=== PATIENT | male | born 1935 | race Caucasian/White ===

== ENCOUNTER 2020-09-19 05:40 | Inpatient (IN) | payer MEDICARE ==
[~2020-09-19] VITALS: Ht 180.3 cm; Wt 83.5 kg
[2020-09-19] MEDS ORDERED: SODIUM CHLORIDE FLUSH 10ML SYR IVF ONE (06:00)
[2020-09-19] MEDS ORDERED: PLEASE ENTER HEIGHT AND WEIGHT MC SCH (06:00)
[2020-09-19] MEDS ORDERED: ONDANSETRON 2MG/ML, 2ML IVPush ONE (06:00)
[2020-09-19] MEDS ORDERED: PANTOPRAZOLE 40 MG IV IVPush ONE ×2 (06:00→13:30)
[2020-09-19] MEDS ORDERED: PLEASE ENTER ALLERGIES MC SCH (06:00)
[2020-09-19] MEDS ORDERED: MORPHINE SULFATE 4 MG/ML, 1ML IVPush PRN (06:00)
[2020-09-19] MEDS ORDERED: QUIN20TA17 PO (06:07)
[2020-09-19] MEDS ORDERED: PRAV80TA2 PO (06:07)
[2020-09-19] MEDS ORDERED: SPIR25TA5 PO (06:07)
[2020-09-19] MEDS ORDERED: ALLO300T PO (06:07)
--- NOTE | 2020-09-19 06:07 | NUR ---
PT BIB [facility] FROM [place]. STATES HE WENT TO [place] WITH HIS SON AND AFTERWARDS BEGAN THROWING UP, THOUGHT IT WAS HIS GERD BUT STATES HE DIDNT STOP AND USUSALLY DOES. PT VOMITTING BILE BY THE END THEN DEVELOPED SOME LIGHT CHEST PAIN. PT STATES THE CP HAS RESOLVED AND WAS GRADUAL ONSET. PT RESTING ON GURNEY, NAD, DENIES ADDITIONAL NEEDS AT THIS TIME. PT PLACED ON SPO2/BP/ECG MONITORING. WCTM RESIDENT MD AT BS FOR EVAL AND POC. 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
[2020-09-19] MEDS ORDERED: OMEP20TA62 PO (06:23)
[2020-09-19] MEDS ORDERED: SODIUM CHLORIDE 0.9% 1,000 ML IV ONE (06:30)
--- NOTE | 2020-09-19 06:37 | NUR ---
PT RESTING ON GURNEY, NAD, APPEARS COMFORTABLE, PROVIDED MOUTH SWABS FOR COMFORT, DENIES ADDITIONAL QUESTIONS OR NEEDS AT THIS TIME. PROVIDED WARM BLANETS FOR COMFORT, BED IN LOWEST, CALL LIGHT ON LAP, VSS. WCTM. WAITING FOR LAB RESULTS.
[2020-09-19 06:52] LABS: ALANINE AMINOTRANSFERASE 34 U/L (12-78); ALBUMIN 3.4 g/dL (3.4-5.0); ANION GAP 4 mmol/L (5-15); CALCIUM 9.9 mg/dL (8.5-10.1); CHLORIDE 108 mmol/L (98-107); CREATININE 1.29 mg/dL (0.7-1.3); TRIGLYCERIDES 51 mg/dL (50-200)
[2020-09-19 06:54] LABS: ALKALINE PHOSPHATASE 97 U/L (45-117); BILIRUBIN,TOTAL 1.2 mg/dL (0.2-1.0); TOTAL PROTEIN 7.8 g/dL (6.4-8.2)
--- NOTE | 2020-09-19 07:00 | NUR ---
bedside report to Yasmine SWANN, pt care transferred at this time.
[2020-09-19 07:09] LABS: BASOPHILS % (AUTO) 0 % (0-1); EOSINOPHILS % (AUTO) 0 % (1-7); LYMPHOCYTES % (AUTO) 5 % (22-44); MEAN CORPUSCULAR HEMOGLOBIN 34.2 pg (27.5-34.5); MEAN CORPUSCULAR HGB CONC 33.8 g/dL (33.2-36.2); MEAN PLATELET VOLUME 9.5 fL (7.4-10.4); MONOCYTES % (AUTO) 9 % (2-9); NEUTROPHILS % (AUTO) 86 % (42-75); PLATELET COUNT 150 x10^3/uL (130-400); RED BLOOD COUNT 3.51 x10^6/uL (4.38-5.82)
[2020-09-19 07:10] LABS: MD NO
--- NOTE | 2020-09-19 07:23 | NUR ---
[facility] CALLED @ [id number]
--- NOTE | 2020-09-19 07:58 | NUR ---
PT IS BUSY WITH HIS PHONE AND DOESN'T WANT TO STOP - US DELAY
--- NOTE | 2020-09-19 08:38 | NUR ---
ATTEMPT TO CALL REPORT, TOLD RN IN RM WILL CALL BACK, US COMPLETED AT BEDSIDE
--- NOTE | 2020-09-19 08:49 | NUR ---
REPORT NOW CALLED TO RECIVEING RN, AWAITING TRANSPORT
[2020-09-19 09:26] VITALS: BP 121/72
[2020-09-19] MEDS ORDERED: BACLOFEN 10 MG TABLET PO PRN (11:00)
[2020-09-19] MEDS ORDERED: LABETALOL 5MG/ML, 20ML IVPush PRN (11:00)
[2020-09-19] MEDS ORDERED: ONDANSETRON ODT 4 MG PO PRN (11:00)
[2020-09-19] MEDS ORDERED: ONDANSETRON 2MG/ML, 2ML IVPush PRN (11:00)
[2020-09-19] MEDS ORDERED: ENALAPRILAT 1.25 MG/ML, 2ML IVPush PRN (11:00)
[2020-09-19] MEDS ORDERED: MELATONIN 5 MG TABLET PO PRN (11:00)
[2020-09-19] MEDS ORDERED: GUAIFENESIN/DM 200-20MG, 10ML UDC PO PRN (11:00)
[2020-09-19] MEDS ORDERED: HYDROmorphone 2 MG/ML, 1ML IVPush PRN (11:00)
[2020-09-19] MEDS ORDERED: GUAIFENESIN/DM 100-10MG, 5ML UDC PO PRN (11:30)
[2020-09-19] MEDS ORDERED: SINCALIDE (KINEVAC) 5 MCG ONE (12:25)
[2020-09-19 13:09] VITALS: BP 144/80
[2020-09-19] MEDS: D5%-0.45NACL+KCL 20MEQ 1,000 ML IV SCH (13:40)
[2020-09-19] MEDS: PANTOPRAZOLE 40 MG IV IVPush SCH (14:30)
[2020-09-19 18:52] VITALS: BP 125/64
[2020-09-20] MEDS: D5%-0.45NACL+KCL 20MEQ 1,000 ML IV SCH ×3 (00:49→21:42)
[2020-09-20 00:57] VITALS: BP 101/63
[2020-09-20 06:03] LABS: BASOPHILS % (AUTO) 0 % (0-1); EOSINOPHILS % (AUTO) 1 % (1-7); LYMPHOCYTES % (AUTO) 22 % (22-44); MEAN CORPUSCULAR HEMOGLOBIN 35.6 pg (27.5-34.5); MEAN CORPUSCULAR HGB CONC 35.2 g/dL (33.2-36.2); MEAN PLATELET VOLUME 9.5 fL (7.4-10.4); MONOCYTES % (AUTO) 11 % (2-9); NEUTROPHILS % (AUTO) 67 % (42-75); PLATELET COUNT 124 x10^3/uL (130-400); RED BLOOD COUNT 3.11 x10^6/uL (4.38-5.82); RED CELL DISTRIBUTION WIDTH 14.5 % (9.4-14.8)
[2020-09-20 06:08] LABS: ALBUMIN 2.8 g/dL (3.4-5.0); CALCIUM 9.6 mg/dL (8.5-10.1); CHLORIDE 109 mmol/L (98-107)
[2020-09-20 06:17] LABS: ALANINE AMINOTRANSFERASE 23 U/L (12-78); ALKALINE PHOSPHATASE 75 U/L (45-117); ANION GAP 3 mmol/L (5-15); BILIRUBIN,TOTAL 0.7 mg/dL (0.2-1.0); CREATININE 1.12 mg/dL (0.7-1.3); TOTAL PROTEIN 7.2 g/dL (6.4-8.2)
[2020-09-20 06:20] LABS: MD NO
[2020-09-20 07:49] VITALS: BP 124/69
[2020-09-20] MEDS: PANTOPRAZOLE 40 MG IV IVPush SCH (11:23)
[2020-09-20 13:40] VITALS: BP 108/61
[2020-09-20 20:00] VITALS: BP 114/53
[2020-09-21 03:07] VITALS: BP 101/59
[2020-09-21 07:57] VITALS: BP 129/69
[2020-09-21] MEDS: PANTOPRAZOLE 40 MG IV IVPush SCH (09:15)
[2020-09-21] MEDS: D5%-0.45NACL+KCL 20MEQ 1,000 ML IV SCH (09:15)
[2020-09-21 13:18] VITALS: BP 150/76
[2020-09-21 13:25] VITALS: BP 142/70
== END 2020-09-21 13:50 | disposition home or self-care (01) | DRG 440 ==
LOC: ED 07:33 → EDIP 07:58 → 4NE 09:00 → DCLOUNGE 09-21 13:35
PROVIDERS: ADMIT Family Medicine; ATTEND Family Medicine
DX: K85.90 Acute pancreatitis without necrosis or infection, unspecified (principal); D53.9 Nutritional anemia, unspecified; E78.5 Hyperlipidemia, unspecified; N20.0 Calculus of kidney; I10 Essential (primary) hypertension; I25.10 Atherosclerotic heart disease of native coronary artery without angina pectoris; R73.9 Hyperglycemia, unspecified; K21.9 Gastro-esophageal reflux disease without esophagitis; F17.210 Nicotine dependence, cigarettes, uncomplicated; Z87.442 Personal history of urinary calculi; Z95.5 Presence of coronary angioplasty implant and graft; Z88.2 Allergy status to sulfonamides
CPT/HCPCS: 36415; 76700; 78227; 80053; 83690; 83735; 84478; 85025; 87040; 93005; G0378; A9537; C9113; C9898; J2805; J3480

== ENCOUNTER 2020-11-25 01:42 | Inpatient (IN) | payer MEDICARE ==
[~2020-11-25] VITALS: Ht 182.9 cm; Wt 89.0 kg
[~2020-11-25 01:42] MED LIST: ALLO300T PO; OMEP20TA62 PO; PRAV80TA2 PO; QUIN20TA17 PO; SPIR25TA5 PO
[2020-11-25] MEDS ORDERED: SODIUM CHLORIDE FLUSH 10ML SYR IVF ONE (02:00)
--- NOTE | 2020-11-25 02:01 | NUR ---
pt bib ems from [facility]. pt has cholecytitis, and they do not have gi availible. pt recieved rocephin, 1 liter ns, and iv reglan. pt denies pain or n/v or pain at this time. pt on all monitors, ekg done, iv patent, labs ordered.
[2020-11-25 02:18] LABS: BASOPHILS % (AUTO) 0 % (0-1); EOSINOPHILS % (AUTO) 0 % (1-7); LYMPHOCYTES % (AUTO) 9 % (22-44); MEAN CORPUSCULAR HEMOGLOBIN 34.7 pg (27.5-34.5); MEAN CORPUSCULAR HGB CONC 33.9 g/dL (33.2-36.2); MEAN PLATELET VOLUME 10.2 fL (7.4-10.4); MONOCYTES % (AUTO) 10 % (2-9); NEUTROPHILS % (AUTO) 81 % (42-75); PLATELET COUNT 94 x10^3/uL (130-400); RED BLOOD COUNT 3.33 x10^6/uL (4.38-5.82); RED CELL DISTRIBUTION WIDTH 14.4 % (9.4-14.8)
[2020-11-25 02:24] LABS: MD NO
[2020-11-25 02:27] LABS: ANION GAP 8 mmol/L (5-15); CALCIUM 9.6 mg/dL (8.5-10.1); CHLORIDE 108 mmol/L (98-107)
[2020-11-25 02:30] LABS: ALANINE AMINOTRANSFERASE 107 U/L (12-78); ALKALINE PHOSPHATASE 198 U/L (45-117); BILIRUBIN,TOTAL 4.5 mg/dL (0.2-1.0); CREATININE 1.46 mg/dL (0.7-1.3); TOTAL PROTEIN 7.6 g/dL (6.4-8.2)
[2020-11-25] MEDS ORDERED: SPIR25TA5 PO (02:39)
[2020-11-25] MEDS: SODIUM CHLORIDE 0.9% 1,000 ML IV SCH ×2 (03:30→17:26)
[2020-11-25] MEDS ORDERED: ONDANSETRON ODT 4 MG PO PRN (03:30)
[2020-11-25] MEDS ORDERED: ONDANSETRON 2MG/ML, 2ML IVPush PRN (03:30)
[2020-11-25] MEDS ORDERED: OXYcodone IR 5MG TABLET PO PRN (03:30)
[2020-11-25] MEDS ORDERED: PROMETHAZINE 25 MG/ML, 1ML IM PRN (03:30)
[2020-11-25] MEDS ORDERED: DOCUSATE 100 MG CAPSULE PO PRN (03:30)
[2020-11-25] MEDS ORDERED: hydrALAzine 20 MG/ML, 1ML IVPush PRN (03:30)
[2020-11-25] MEDS ORDERED: HEPARIN 5,000 UNITS/ML, 1ML SQ SCH (03:30)
[2020-11-25 03:43] LABS: INTERNATIONAL NORMALIZED RATIO 1.17 (0.93-1.1); PROTHROMBIN TIME 12.5 Seconds (9.6-11.5)
[2020-11-25 03:47] LABS: FREE T4 (FREE THYROXINE) 1.27 ng/dL (0.76-1.46)
[2020-11-25 04:01] VITALS: BP 141/74
[2020-11-25] MEDS ORDERED: ALLOPURINOL 300 MG TABLET PO SCH (09:00)
[2020-11-25] MEDS ORDERED: SPIRONOLACTONE 25 MG TABLET PO SCH (09:00)
[2020-11-25] MEDS ORDERED: QUINAPRIL 20MG TABLET PO SCH (09:00)
[2020-11-25 09:22] VITALS: BP 120/70
[2020-11-25 14:59] VITALS: BP 135/72
[2020-11-25] MEDS: CEFTRIAXONE PMX 2GM/50ML 50 ML IVPB SCH (17:21)
[2020-11-25 17:28] VITALS: BP 162/74
[2020-11-25] MEDS: morphine SULFATE 10 MG/ML, 1ML IVPush PRN (18:11)
[2020-11-25] MEDS: METRONIDAZOLE PMX 500MG/100ML 100 ML IV SCH (18:14)
[2020-11-25 19:04] VITALS: BP 160/76
[2020-11-26 01:37] VITALS: BP 154/83
[2020-11-26] MEDS: METRONIDAZOLE PMX 500MG/100ML 100 ML IV SCH ×3 (02:52→18:25)
[2020-11-26 05:40] LABS: BASOPHILS % (AUTO) 0 % (0-1); EOSINOPHILS % (AUTO) 0 % (1-7); LYMPHOCYTES % (AUTO) 6 % (22-44); MEAN CORPUSCULAR HEMOGLOBIN 34.7 pg (27.5-34.5); MEAN CORPUSCULAR HGB CONC 34.1 g/dL (33.2-36.2); MEAN PLATELET VOLUME 10.1 fL (7.4-10.4); MONOCYTES % (AUTO) 11 % (2-9); NEUTROPHILS % (AUTO) 83 % (42-75); PLATELET COUNT 94 x10^3/uL (130-400); RED BLOOD COUNT 3.27 x10^6/uL (4.38-5.82); RED CELL DISTRIBUTION WIDTH 14.8 % (9.4-14.8)
[2020-11-26 05:48] LABS: ALANINE AMINOTRANSFERASE 76 U/L (12-78); ALBUMIN 2.8 g/dL (3.4-5.0); ANION GAP 8 mmol/L (5-15); CALCIUM 10.2 mg/dL (8.5-10.1); CHLORIDE 112 mmol/L (98-107); CHOLESTEROL, TOTAL 86 mg/dL (140-239); CREATININE 1.41 mg/dL (0.7-1.3)
[2020-11-26 05:50] LABS: TRIGLYCERIDES 90 mg/dL (50-200); VLDL CHOLESTEROL 18 mg/dL (0-25)
[2020-11-26 05:53] LABS: ALKALINE PHOSPHATASE 210 U/L (45-117); BILIRUBIN,TOTAL 6.4 mg/dL (0.2-1.0); CHOL/HDL RATIO 5.4; HDL CHOL % 19 % (26-37); HDL CHOLESTEROL (DIRECT) 16 mg/dL (40-60); LDL CHOLESTEROL,CALCULATED 52 mg/dL (54-169); LDL/HDL RATIO 3.3 (0.5-3.0); MD NO; TOTAL PROTEIN 7.1 g/dL (6.4-8.2)
[2020-11-26 06:25] VITALS: BP 151/80
[2020-11-26] MEDS: morphine SULFATE 10 MG/ML, 1ML IVPush PRN (10:52)
[2020-11-26 12:00] VITALS: BP 156/80
[2020-11-26] MEDS ORDERED: CHLORHEXIDINE 15 ML UDC ONE (13:24)
[2020-11-26] MEDS ORDERED: FENTANYL PF 100 MCG/2ML ONE (14:10)
[2020-11-26] MEDS ORDERED: DEXAMETHASONE 4 MG/ML, 5ML ONE (14:12)
[2020-11-26] MEDS ORDERED: PROPOFOL 10 MG/ML, 20ML ONE (14:12)
[2020-11-26] MEDS ORDERED: SUCCINYLCHOLINE 20 MG/ML, 10ML ONE (14:12)
[2020-11-26] MEDS ORDERED: ROCURONIUM 10 MG/ML,10ML ONE (14:26)
[2020-11-26] MEDS ORDERED: OMNIPAQUE 350 MG/ML, 50 ML BOTTLE ONE (15:00)
[2020-11-26] MEDS ORDERED: PROMETHAZINE 12.5 MG SUPP PR PRN (15:30)
[2020-11-26] MEDS ORDERED: MIDAZOLAM 1 MG/ML, 2ML IV PRN (15:30)
[2020-11-26] MEDS ORDERED: HYDROmorphone 1 MG/ML, 1ML INJ IVPush PRN (15:30)
[2020-11-26] MEDS ORDERED: PROMETHAZINE 25 MG/ML, 1ML IVPush PRN (15:30)
[2020-11-26] MEDS ORDERED: EPHEDRINE 50 MG/ML, 1ML IVPush PRN (15:30)
[2020-11-26] MEDS ORDERED: OXYcodone 5 MG/5 ML ORAL.SOL UDC PO PRN (15:30)
[2020-11-26] MEDS ORDERED: hydrALAzine 20 MG/ML, 1ML IV PRN (15:30)
[2020-11-26] MEDS ORDERED: FENTANYL PF 100 MCG/2ML IV PRN (15:30)
[2020-11-26] MEDS ORDERED: DIAZEPAM 5 MG/ML, 2ML IVPush PRN (15:30)
[2020-11-26] MEDS ORDERED: LABETALOL 5MG/ML, 20ML IV PRN (15:30)
[2020-11-26] MEDS ORDERED: ALBUTEROL SULFATE 2.5 MG/3 ML NPPB PRN (15:30)
[2020-11-26] MEDS ORDERED: MEPERIDINE/PF 25MG/0.5ML IVPush PRN (15:30)
[2020-11-26] MEDS ORDERED: DIPHENHYDRAMINE 50 MG/ML, 1ML IVPush PRN (15:30)
[2020-11-26] MEDS ORDERED: ONDANSETRON 2MG/ML, 2ML IVPush PRN (15:30)
[2020-11-26] MEDS ORDERED: SIMETHICONE DROPS 40 MG/0.6 ML BOTTLE ONE (15:45)
[2020-11-26] MEDS ORDERED: INDOMETHACIN 50 MG SUPP.RECT ONE (16:03)
[2020-11-26] MEDS ORDERED: INDOMETHACIN 50 MG SUPP.RECT PR ONE (16:30)
[2020-11-26] MEDS: SODIUM CHLORIDE 0.9% 1,000 ML IV SCH (17:32)
[2020-11-26] MEDS: CEFTRIAXONE PMX 2GM/50ML 50 ML IVPB SCH (17:34)
[2020-11-26 18:00] VITALS: BP 148/78
[2020-11-26 19:20] VITALS: BP 170/83
[2020-11-27 00:05] VITALS: BP 144/73
[2020-11-27] MEDS: SODIUM CHLORIDE 0.9% 1,000 ML IV SCH ×2 (01:30→10:03)
[2020-11-27] MEDS: METRONIDAZOLE PMX 500MG/100ML 100 ML IV SCH ×3 (02:15→18:09)
[2020-11-27 03:45] VITALS: BP 132/65
[2020-11-27 05:57] LABS: BASOPHILS % (AUTO) 0 % (0-1); EOSINOPHILS % (AUTO) 0 % (1-7); LYMPHOCYTES % (AUTO) 8 % (22-44); MEAN CORPUSCULAR HEMOGLOBIN 34.9 pg (27.5-34.5); MEAN CORPUSCULAR HGB CONC 34.1 g/dL (33.2-36.2); MEAN PLATELET VOLUME 10.9 fL (7.4-10.4); MONOCYTES % (AUTO) 3 % (2-9); NEUTROPHILS % (AUTO) 88 % (42-75); PLATELET COUNT 78 x10^3/uL (130-400); RED BLOOD COUNT 2.89 x10^6/uL (4.38-5.82); RED CELL DISTRIBUTION WIDTH 14.6 % (9.4-14.8)
[2020-11-27 06:11] LABS: CHLORIDE 113 mmol/L (98-107)
[2020-11-27 06:19] LABS: ALANINE AMINOTRANSFERASE 54 U/L (12-78); ALBUMIN 2.3 g/dL (3.4-5.0); ALKALINE PHOSPHATASE 190 U/L (45-117); ANION GAP 6 mmol/L (5-15); BILIRUBIN,TOTAL 3.4 mg/dL (0.2-1.0); CALCIUM 9.6 mg/dL (8.5-10.1); CREATININE 1.21 mg/dL (0.7-1.3); TOTAL PROTEIN 6.2 g/dL (6.4-8.2)
[2020-11-27 06:25] LABS: MD SCAN
[2020-11-27 07:18] VITALS: BP 118/67
[2020-11-27] MEDS ORDERED: CHLORHEXIDINE 15 ML UDC MM STA (11:57)
[2020-11-27] MEDS ORDERED: EPINEPHRINE 1 MG/ML, 1ML ONE (11:58)
[2020-11-27] MEDS ORDERED: BUPIVACAINE/PF 0.5% ONE (11:58)
[2020-11-27] MEDS ORDERED: FENTANYL PF 250 MCG/5ML ONE (12:28)
[2020-11-27] MEDS ORDERED: DEXAMETHASONE 4 MG/ML, 5ML ONE (12:28)
[2020-11-27] MEDS ORDERED: BUPIVACAINE/PF-EPI 0.5% 1:200K INFIL ONE (12:40)
[2020-11-27] MEDS ORDERED: hydrALAzine 20 MG/ML, 1ML IV PRN (13:30)
[2020-11-27] MEDS ORDERED: MEPERIDINE/PF 25MG/0.5ML IVPush PRN (13:30)
[2020-11-27] MEDS ORDERED: FENTANYL PF 100 MCG/2ML IV PRN (13:30)
[2020-11-27] MEDS ORDERED: OXYcodone 5 MG/5 ML ORAL.SOL UDC PO PRN (13:30)
[2020-11-27] MEDS ORDERED: LABETALOL 5MG/ML, 20ML IV PRN (13:30)
[2020-11-27] MEDS ORDERED: DIPHENHYDRAMINE 50 MG/ML, 1ML IVPush PRN (13:30)
[2020-11-27] MEDS ORDERED: ONDANSETRON 2MG/ML, 2ML IVPush PRN (13:30)
[2020-11-27] MEDS ORDERED: PROMETHAZINE 25 MG/ML, 1ML IVPush PRN (13:30)
[2020-11-27] MEDS ORDERED: HYDROmorphone 1 MG/ML, 1ML INJ IVPush PRN (13:30)
[2020-11-27] MEDS ORDERED: EPHEDRINE 50 MG/ML, 1ML IVPush PRN (13:30)
[2020-11-27] MEDS ORDERED: PROMETHAZINE 12.5 MG SUPP PR PRN (13:30)
[2020-11-27] MEDS ORDERED: DIAZEPAM 5 MG/ML, 2ML IVPush PRN (13:30)
[2020-11-27] MEDS ORDERED: ALBUTEROL SULFATE 2.5 MG/3 ML NPPB PRN (13:30)
[2020-11-27] MEDS ORDERED: MIDAZOLAM 1 MG/ML, 2ML IV PRN (13:30)
[2020-11-27] MEDS: CEFTRIAXONE PMX 2GM/50ML 50 ML IVPB SCH (17:35)
[2020-11-27] MEDS: BACLOFEN 10 MG TABLET PO PRN (19:50)
[2020-11-27 20:03] VITALS: BP 148/71
[2020-11-28 00:02] VITALS: BP 119/65
[2020-11-28] MEDS: SODIUM CHLORIDE 0.9% 1,000 ML IV SCH ×2 (01:30→10:00)
[2020-11-28] MEDS: METRONIDAZOLE PMX 500MG/100ML 100 ML IV SCH ×3 (01:57→18:02)
[2020-11-28 04:49] VITALS: BP 123/67
[2020-11-28 05:33] LABS: ALANINE AMINOTRANSFERASE 37 U/L (12-78); ALBUMIN 2.1 g/dL (3.4-5.0); ANION GAP 7 mmol/L (5-15); CALCIUM 9.1 mg/dL (8.5-10.1); CHLORIDE 113 mmol/L (98-107); CREATININE 1.31 mg/dL (0.7-1.3)
[2020-11-28 05:36] LABS: ALKALINE PHOSPHATASE 148 U/L (45-117); BILIRUBIN,TOTAL 1.5 mg/dL (0.2-1.0); TOTAL PROTEIN 5.7 g/dL (6.4-8.2)
[2020-11-28 09:45] VITALS: BP 130/73
[2020-11-28 13:50] VITALS: BP 163/67
[2020-11-28] MEDS: CEFTRIAXONE PMX 2GM/50ML 50 ML IVPB SCH (16:58)
[2020-11-28 19:46] VITALS: BP 165/83
[2020-11-28] MEDS: BACLOFEN 10 MG TABLET PO PRN (23:22)
[2020-11-29 00:11] VITALS: BP 117/67
[2020-11-29] MEDS: METRONIDAZOLE PMX 500MG/100ML 100 ML IV SCH ×3 (01:59→18:07)
[2020-11-29 05:57] LABS: BASOPHILS % (AUTO) 0 % (0-1); EOSINOPHILS % (AUTO) 0 % (1-7); LYMPHOCYTES % (AUTO) 18 % (22-44); MEAN PLATELET VOLUME 10.4 fL (7.4-10.4); MONOCYTES % (AUTO) 14 % (2-9); NEUTROPHILS % (AUTO) 68 % (42-75); PLATELET COUNT 109 x10^3/uL (130-400); RED BLOOD COUNT 2.96 x10^6/uL (4.38-5.82); RED CELL DISTRIBUTION WIDTH 14.6 % (9.4-14.8)
[2020-11-29 06:10] LABS: ALBUMIN 2.3 g/dL (3.4-5.0); ANION GAP 7 mmol/L (5-15); CALCIUM 9.1 mg/dL (8.5-10.1); CHLORIDE 114 mmol/L (98-107)
[2020-11-29 06:16] LABS: ALANINE AMINOTRANSFERASE 30 U/L (12-78); ALKALINE PHOSPHATASE 141 U/L (45-117); BILIRUBIN,TOTAL 1.2 mg/dL (0.2-1.0); CREATININE 1.03 mg/dL (0.7-1.3); TOTAL PROTEIN 6.1 g/dL (6.4-8.2)
[2020-11-29 06:39] LABS: ANISOCYTOSIS 1+; MD MORPH REVIEW ONLY; OVALOCYTES 1+; TEAR DROPS 1+
[2020-11-29 06:40] LABS: <PLATELET ESTIMATE> DECREASED; LARGE PLATELETS 1+
[2020-11-29 07:42] VITALS: BP 135/67
[2020-11-29 13:00] VITALS: BP 125/65
[2020-11-29] MEDS ORDERED: POTASSIUM CHLORIDE 20 MEQ TAB.ER.PRT PO ONE (15:00)
[2020-11-29] MEDS ORDERED: ALUMINUM/MAG/SIMETHICONE 30 ML UDC PO PRN (15:00)
[2020-11-29 17:10] LABS: MICROSCOPIC NOT IND
[2020-11-29] MEDS: CEFTRIAXONE PMX 2GM/50ML 50 ML IVPB SCH (17:31)
[2020-11-29 19:49] VITALS: BP 179/94
[2020-11-29] MEDS ORDERED: PANT40TA6 PO (22:34)
[2020-11-29] MEDS ORDERED: PRAV80TA2 PO (22:34)
[2020-11-29] MEDS ORDERED: ONDA4TAB13 PO (22:34)
[2020-11-30 00:45] VITALS: BP 143/72
[2020-11-30] MEDS: METRONIDAZOLE PMX 500MG/100ML 100 ML IV SCH ×3 (02:27→18:00)
[2020-11-30] MEDS: PANTOPRAZOLE 40MG TABLET PO SCH (04:43)
[2020-11-30 05:54] LABS: ALANINE AMINOTRANSFERASE 30 U/L (12-78); ALBUMIN 2.3 g/dL (3.4-5.0); ANION GAP 6 mmol/L (5-15); CALCIUM 9.1 mg/dL (8.5-10.1); CHLORIDE 114 mmol/L (98-107)
[2020-11-30 05:57] LABS: ALKALINE PHOSPHATASE 118 U/L (45-117); BILIRUBIN,TOTAL 1.1 mg/dL (0.2-1.0); CREATININE 0.78 mg/dL (0.7-1.3); TOTAL PROTEIN 5.6 g/dL (6.4-8.2)
[2020-11-30 07:40] VITALS: BP 167/89
[2020-11-30] MEDS: ALLOPURINOL 300 MG TABLET PO SCH (08:21)
[2020-11-30] MEDS: QUINAPRIL 20MG TABLET PO SCH (08:21)
[2020-11-30] MEDS ORDERED: MAGNESIUM SULFATE PMX 2GM/50ML 50 ML IV ONE (08:30)
[2020-11-30] MEDS ORDERED: AMOX250S20 PO (12:31)
[2020-11-30 13:55] VITALS: BP 125/66
[2020-11-30] MEDS: CEFTRIAXONE PMX 2GM/50ML 50 ML IVPB SCH (16:51)
[2020-11-30 19:17] VITALS: BP 169/84
[2020-12-01] MEDS: METRONIDAZOLE PMX 500MG/100ML 100 ML IV SCH (02:21)
[2020-12-01 02:46] VITALS: BP 149/77
[2020-12-01] MEDS: PANTOPRAZOLE 40MG TABLET PO SCH (04:51)
[2020-12-01 07:15] VITALS: BP 148/77
[2020-12-01] MEDS: ALLOPURINOL 300 MG TABLET PO SCH (08:56)
[2020-12-01] MEDS: QUINAPRIL 20MG TABLET PO SCH (08:56)
[2020-12-01] MEDS ORDERED: AMOXICILLIN/CLAV 500-125MG TABLET PO SCH (10:30)
[2020-12-01 13:40] VITALS: BP 110/64
[2020-12-01] MEDS: CEFTRIAXONE PMX 2GM/50ML 50 ML IVPB SCH (15:26)
[2020-12-01] MEDS ORDERED: SPIR25TA5 PO (17:09)
== END 2020-12-01 18:41 | disposition home or self-care (01) | DRG 417 ==
LOC: ED 02:44 → EDIP 02:48 → 4NE 03:58
PROVIDERS: ADMIT Internal Medicine; ATTEND Internal Medicine
PROC: 0F798DZ Dilation of Common Bile Duct with Intraluminal Device, Via Natural or Artificial Opening Endoscopic (ICD-10-PCS; 2020-11-26)
PROC: 0FT44ZZ Resection of Gallbladder, Percutaneous Endoscopic Approach (ICD-10-PCS; principal; 2020-11-27 12:00)
DX: K80.63 Calculus of gallbladder and bile duct with acute cholecystitis with obstruction (principal); N17.0 Acute kidney failure with tubular necrosis; K85.10 Biliary acute pancreatitis without necrosis or infection; R17 Unspecified jaundice; D53.9 Nutritional anemia, unspecified; E78.00 Pure hypercholesterolemia, unspecified; E78.5 Hyperlipidemia, unspecified; Z20.822 Contact with and (suspected) exposure to COVID-19; F17.210 Nicotine dependence, cigarettes, uncomplicated; I10 Essential (primary) hypertension; I25.10 Atherosclerotic heart disease of native coronary artery without angina pectoris; K64.9 Unspecified hemorrhoids; K21.9 Gastro-esophageal reflux disease without esophagitis; Z79.899 Other long term (current) drug therapy; Z95.5 Presence of coronary angioplasty implant and graft
CPT/HCPCS: 36415; 74181; 74328; 78226; 80053; 80061; 81003; 83036; 83690; 83735; 84145; 84439; 84443; 85025; 85610; 87040; 87635; 88304; 93005; 96374; 99285; C1729; G0378; J0171; J0696; J1100; J1644; J2704; J3010; Q0162; Q9967; A9537; C1760; C1769; C1894; C2625; J0330; J0360; J2270; J3475; J7030